=== PATIENT | male | born 1975 | race Caucasian/White ===

== ENCOUNTER 2017-03-22 08:49 | Emergency (ER) | payer OTHER, BC ==
[2017-03-22] MEDS ORDERED: Ketorolac 60 MG/2 ML SDV IM ONE (09:03)
[2017-03-22] MEDS ORDERED: LORazepam 2 MG/ML MDV IVPUSH ONE (09:22)
[2017-03-22] MEDS: Sodium Chloride 0.9% 10 ML Syringe FLUSH PRN ×2 (09:26→10:08)
--- NOTE | 2017-03-22 09:29 | EDM.PDOC ---
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, he got out of the tracker 3d ago and slipped and twisted his shoulder, he had pain in his shoulder and slight pain in his lower back that got better today he bend over to put on his boot and had pain in his lower mid back, no radiation he is hyperventilating here, c/o numbness in his L fingers, lying supine, has tenderness over his SI joints, no paraveretebral spasm - Related Data Allergies Allergy/AdvReac Type Severity Reaction Status Date / Time Penicillins Allergy Anaphylactic Verified 03/08/14 18:09 Shock Home Meds: Home Meds Cyclobenzaprine HCl 10 mg PO TID PRN #15 tablet 03/22/17 [Rx] Naproxen 500 mg PO BID #60 tablet. 03/22/17 [Rx] Past Medical History - Past Health History Medical/Surgical History: Denies Medical/Surgical History Social & Family History - Tobacco Use Smoking Status *Q: Never Smoker - Alcohol Use Days Per Week of Alcohol Use: 0 - Recreational Drug Use Recreational Drug Use: No ED ROS GENERAL - Review of Systems Review Of Systems: See Below Constitutional: Reports: No Symptoms HEENT: Reports: No Symptoms Respiratory: Reports: No Symptoms Cardiovascular: Reports: No Symptoms Endocrine: Reports: No Symptoms GI/Abdominal: Reports: No Symptoms : Reports: No Symptoms Musculoskeletal: Reports: Back Pain Skin: Reports: No Symptoms Neurological: Reports: No Symptoms Psychiatric: Reports: No Symptoms Hematologic/Lymphatic: Reports: No Symptoms Immunologic: Reports: No Symptoms ED EXAM,LOWER BACK PAIN/INJURY - Physical Exam Exam: See Below Exam Limited By: No Limitations General Appearance: Alert, WD/WN, Anxious Respiratory/Chest: No Respiratory Distress, Lungs Clear Cardiovascular: Regular Rate, Rhythm, No JVD, No Murmur, No Rub Back Exam: Other (1+ tender at R SI joint, trace tender at L SI joint, NT at iliac crests and t-spine, mild tender at l-spine, moving legs spontaneously, not allowing passive movement of legs) Psychiatric: Anxious Skin Exam: Warm, Dry, Intact, Normal Color, No Rash Lymphatic: No Adenopathy Course - Orders/Labs/Meds Orders: Active Orders 24 hr Category Date Time Status Lumbar Spine 2 or 3V [CR] Stat Exams 03/22/17 09:22 Taken Sodium Chloride 0.9% [Saline Flush] Med 03/22/17 09:25 Unverified 10 ml FLUSH ASDIRECTED PRN Sodium Chloride 0.9% [Saline Flush] Med 03/22/17 10:07 Active 10 ml FLUSH ASDIRECTED PRN Saline Lock Insert [OM.PC] Routine Oth 03/22/17 10:04 Ordered Medication Orders Sodium Chloride (Saline Flush) 10 ml FLUSH ASDIRECTED PRN PRN Reason: Keep Vein Open Last Admin: 03/22/17 10:08 Dose: 10 ml Admin: 03/22/17 09:26 Dose: 10 ml Meds: Medications Generic Name Dose Route Start Last Admin Trade Name Freq PRN Reason Stop Dose Admin Sodium Chloride 10 ml 03/22/17 10:07 03/22/17 10:08 Saline Flush FLUSH 10 ml ASDIRECTED PRN Administration Keep Vein Open Discontinued Medications Generic Name Dose Route Start Last Admin Trade Name Freq PRN Reason Stop Dose Admin Ketorolac Tromethamine 60 mg 03/22/17 09:03 03/22/17 09:09 Toradol IM 03/22/17 09:04 60 mg ONETIME ONE Administration Lorazepam 1 mg 03/22/17 09:22 03/22/17 10:01 Ativan IVPUSH 03/22/17 09:23 1 mg ONETIME ONE Administration - Re-Assessments/Exams Free Text/Narrative Re-Assessment/Exam: 03/22/17 10:50 XR l-spine neg, pt now lying prone, pain better, less pain at SI joints now, does have 1+ tender at L4 only, not able to do a SLR, likely a ligament injury based on hx and PE altho pt told that a disc injury cannot be excluded pt asked re chiropractor and I advised he should wait and talk to PCP first, no work for 48 hours until cleared by his physician is now here, she took off from work to come in Departure - Departure Time of Disposition: 10:53 Disposition: Home, Self-Care 01 Condition: Good Clinical Impression: Lumbar spine strain - Discharge Information Prescriptions: Cyclobenzaprine HCl 10 mg PO TID PRN #15 tablet PRN Reason: Spasms Naproxen 500 mg PO BID #60 tablet.dr Referrals: Lizandro Ware MD [Primary Care Provider] - Additional Instructions: Sleep on a firm mattress. Put a mattress on the floor if necessary. Use ice for 15 minutes 4 times a day for 2 days, then switch to heat. May use gentle massage for 5 minutes after ice/heat as needed. For pain and inflammation, take naproxen 500 mg 1 tab 2 times a day for 2 weeks , longer if needed. For pain and inflammation, take acetaminophen 325 mg 2 tabs 4 times a day for 2 weeks, longer if needed. For spasm, take cyclobenzaprine 10 mg 1 tab 3 times a day as needed. Try to keep your shoulder squared over your hips and avoid bending or twisting. No work for 48 hours until cleared by your physician. See your physician in 2 days. Return to ED if you are feeling worse. - My Orders Last 24 Hours: My Active Orders 03/22/17 09:22 Lumbar Spine 2 or 3V [CR] Stat 03/22/17 09:25 Sodium Chloride 0.9% [Saline Flush] 10 ml FLUSH ASDIRECTED PRN 03/22/17 10:04 Saline Lock Insert [OM.PC] Routine 03/22/17 10:07 Sodium Chloride 0.9% [Saline Flush] 10 ml FLUSH ASDIRECTED PRN - Assessment/Plan Last 24 Hours: My Active Orders 03/22/17 09:22 Lumbar Spine 2 or 3V [CR] Stat 03/22/17 09:25 Sodium Chloride 0.9% [Saline Flush] 10 ml FLUSH ASDIRECTED PRN 03/22/17 10:04 Saline Lock Insert [OM.PC] Routine 03/22/17 10:07 Sodium Chloride 0.9% [Saline Flush] 10 ml FLUSH ASDIRECTED PRN
[2017-03-22] MEDS ORDERED: HYDROmorphone 2 MG/ML SDV IM ONE (11:29)
--- NOTE | 2017-03-22 13:43 | CR ---
INDICATION: Hinckley a pop in back, complains of low back pain. Fell 2 days ago. LUMBOSACRAL SPINE: Four images of the lumbosacral spine in frontal and lateral projections revealed decreased disk space at L4-5. There may be some mild sclerosis at the apophyseal joints of L4-5 and possibly L5-S1. A very minimal dextroconvex scoliosis of the upper middle lumbar spine is suggested. The pedicles appear to be intact. Sacroiliac joints appear to be intact. Vertebral body heights were maintained. IMPRESSION: Question disk disease at L4-5. There may be some mild osteoarthritic changes at the L4-5, L5-S1 apophyseal joints. Minimal scoliosis cannot be excluded. MTDD
== END 2017-03-22 12:14 | disposition home or self-care (01) ==
LOC: FB.ED 08:49
DX: S39.012A Strain of muscle, fascia and tendon of lower back, initial encounter (principal); Z88.0 Allergy status to penicillin; X50.1XXA Overexertion from prolonged static or awkward postures, initial encounter; Y93.89 Activity, other specified
CPT/HCPCS: 72100; 96372; 96374; 99283; J1170; J1885; J2060; J7050